=== PATIENT | male | born 1995 ===

== ENCOUNTER 2020-12-13 11:34 | Emergency (ER) | payer OTHER ==
[~2020-12-13] VITALS: Ht 170.2 cm; Wt 63.5 kg
== END 2020-12-13 14:10 | disposition home or self-care (01) ==
LOC: ER 11:34
DX: S43.402A Unspecified sprain of left shoulder joint, initial encounter (principal); V89.2XXA Person injured in unspecified motor-vehicle accident, traffic, initial encounter
CPT/HCPCS: 73030; 90471; 90714; 99284-25; A9270